=== PATIENT | female | born 1995 | race Caucasian/White ===

== ENCOUNTER → 2016-08-26 | Outpatient (CLI) | payer BC, OTHER ==
--- NOTE | 2016-08-26 21:58 | REP ---
Clinical: Back pain . Technique: AP, lateral, bilateral oblique, and coned-down views. Findings: Alignment and lordosis is maintained. The vertebral bodies including transverse process and spinous processes are intact and normal. There is no evidence for acute fracture / compression injury or subluxation. No evidence for spondylolysis or spondylolisthesis. No significant degenerative change is noted. Impression: Normal lumbosacral spine radiograph series. Signed by Cole Oneal MD 08/26/2016 09:49 P
--- NOTE | 2016-08-26 22:05 | REP ---
Clinical: thoracic pain. Technique: AP, lateral, and swimmers views. Findings: Kyphosis is maintained. Very subtle dextroconvex scoliosis noted centered at T6-7. Vertebral bodies intact. No acute fracture / compression injury or subluxation. No degenerative changes. Paravertebral soft tissues are normal. Impression: Trace dextroconvex scoliosis. Otherwise normal examination. Signed by Cole Oneal MD 08/26/2016 09:57 P
== END ==
LOC: M CLY 09:30
PROVIDERS: ATTEND Physician Assistant
DX: M41.9 Scoliosis, unspecified (principal)

== ENCOUNTER → 2017-03-24 | Outpatient (REF) | payer OTHER ==
[2017-03-25 20:11] LABS: CHLAMYDIA DNA AMPLIFICATION NEGATIVE (NEGATIVE); GC DNA AMPLIFICATION NEGATIVE (NEGATIVE)
== END ==
LOC: M SFHCCAPE 15:10
DX: Z01.419 Encounter for gynecological examination (general) (routine) without abnormal findings (principal); B37.3 Candidiasis of vulva and vagina
CPT/HCPCS: 87077; 87591

== ENCOUNTER → 2017-11-18 | Outpatient (REF) | payer OTHER | LOC: M LAB REF 16:58 | DX: R30.0 Dysuria (principal) ==

== ENCOUNTER 2018-05-27 11:21 | Day surgery (SDC) | payer BC, OTHER ==
[~2018-05-27] VITALS: Ht 167.6 cm; Wt 69.1 kg
[~2018-05-27 11:21] MED LIST: LR 1,000 ML IV SCH
[2018-05-27] MEDS ORDERED: LOW-1TAB2 PO (11:40)
[2018-05-27 11:48] LABS: HEMATOCRIT 46.3 % (36.0-47.0); HEMOGLOBIN 15.5 g/dl (12.0-15.5); MEAN CORPUSCULAR HEMOGLOBIN 30.9 pg (27.0-33.0); MEAN CORPUSCULAR HGB CONC 33.5 g/dl (32.0-36.5); MEAN CORPUSCULAR VOLUME 92.4 fl (80.0-96.0); PLATELET COUNT, AUTOMATED 232 10^3/uL (150-450); RED BLOOD COUNT 5.01 10^6/uL (4.00-5.40)
[2018-05-27 12:22] LABS: HCG, SERUM QUALITATIVE NEGATIVE (NEGATIVE)
[2018-05-27] MEDS ORDERED: PROPOFOL 200 MG/20 ML VIAL As Ordered ONE ×2 (12:37→16:53)
[2018-05-27] MEDS ORDERED: LIDOCAINE 2% INJ 100 MG/5 ML SDV (FOR ANES.) As Ordered ONE (12:37)
[2018-05-27] MEDS ORDERED: MIDAZOLAM INJ 2 MG/2 ML VIAL (J2250) As Ordered ONE (12:38)
[2018-05-27] MEDS ORDERED: dexameTHASONE 4 MG/ML 1ML VIAL (J1100) As Ordered ONE (12:38)
[2018-05-27] MEDS ORDERED: fentaNYL 100 MCG/2 ML INJECTION (J3010) As Ordered ONE (12:38)
[2018-05-27] MEDS ORDERED: ONDANSETRON 4MG/2ML VIAL (J2405) As Ordered ONE (12:38)
[2018-05-27] MEDS ORDERED: BUPIVACAINE HCL 0.25% 30 ML VIAL As Ordered ONE (13:43)
[2018-05-27] MEDS ORDERED: ESTROGENS VAGINAL CREAM 30GM As Ordered ONE (13:43)
[2018-05-27] MEDS ORDERED: SILVER NITRATE APPLICATOR As Ordered ONE (13:43)
[2018-05-27] MEDS ORDERED: PERC5TAB12 PO (17:35)
[2018-05-27] MEDS ORDERED: DIBU10OI TOP (17:41)
[2018-05-27] MEDS ORDERED: IBUP80TA PO (17:41)
[2018-05-27] MEDS ORDERED: KETOROLAC 30 MG/ML VIAL (J1885) As Ordered ONE (18:18)
[2018-05-27] MEDS ORDERED: KETOROLAC 30 MG/ML VIAL (J1885) IV ONE (18:45)
[2018-05-27] MEDS ORDERED: LIDOCAINE 2% JELLY 30 ML As Ordered ONE (19:01)
[2018-05-27 19:40] VITALS: BP 131/90
--- NOTE | 2018-05-28 07:35 | RO ---
DATE OF PROCEDURE: 05/27/2018 PREOPERATIVE DIAGNOSIS: Right Bartholin's duct cyst. POSTOPERATIVE DIAGNOSIS: Right Bartholin's duct cyst. PROCEDURE PERFORMED: Right Bartholin's duct cyst marsupialization. SURGEON: DO SUMAN ArroyoOG FINISHING INSPECTOR: None. ANESTHESIA: Local, monitored anesthesia care (MAC). SPECIMENS SENT TO PATHOLOGY: Culture swab anaerobic and aerobic of the cystic fluid. ESTIMATED BLOOD LOSS: 5 mL. FLUIDS REPLACED: 1100 mL of lactated Ringer's. DRAINS: None. URINE OUTPUT: Not recorded. COMPLICATIONS: None. PREOPERATIVE ANTIBIOTICS: Ancef 2 grams IV times one. INTRAOPERATIVE FINDINGS: Right Bartholin's duct cyst approximately 3 cm in greatest dimension. The cystic fluid was yellow-brown in color, non-malodorous. INDICATION: Patient is a 23-year-old with a newly diagnosed right sided Bartholin's duct cyst. She has elected to proceed with marsupialization under anesthesia after reviewing risks, benefits, alternatives and indications. PROCEDURE: The patient was counseled and consented on the risks, benefits, indications, alternatives of the procedure. Informed consent was obtained. She was taken to the operating room with an IV running and placed on operating table in the dorsal supine position. We placed her in the high lithotomy position. She was prepared and draped in normal sterile fashion. A time-out was performed per protocol. Local anesthetic approximately 8 mL of 1% lidocaine was injected over the dome of the Bartholin's duct cyst. The Bartholin's duct cyst was pushed to the surface. At the interface of the vagina and vulva a 2 cm elliptical incision was made with the 15 blade. After the elliptical incision was made and the overlying skin was excised, the cystic wall was incised with a 15 blade and expression of copious amounts of the yellow-brown fluid was noted, the fluid was cultured during the decompression of the cyst. The cystic wall was tacked to the normal vaginal and vulvar epithelium and an circumferential fashion, thus creating a marsupialized pouch. The cystic space was broken up with a hemostat to ensure that any loculations were broken up and fluid could be drained. After marsupialization the patency was still approximately 1.5 to 2 cm. Minimal drainage and bleeding was noted at the conclusion of the procedure. Given excellent hemostasis and successful marsupialization the decision was made to conclude the procedure. Additional 1% lidocaine was injected into the surgical site. Sponge, lap, needle, and instrument counts were correct. The patient tolerated the entire procedure well. She was transferred the post-anesthesia care unit (PACU) in good stable condition. EDYTA
== END 2018-05-27 19:40 | disposition home or self-care (01) ==
LOC: M SDC 11:21
PROVIDERS: ATTEND Obstetrics & Gynecology
DX: N75.0 Cyst of Bartholin's gland (principal)
CPT/HCPCS: 36415; 56440; 84703; 85027; 86850; 87070; 87075; 87205; J0690; J1100; J1885; J2250; J2405; J3010

== ENCOUNTER → 2018-10-11 | Outpatient (REF) | payer OTHER ==
[~2018-10-11] MED LIST changes: +DIBU10OI TOP; +IBUP80TA PO; +LOW-1TAB2 PO; -LR 1,000 ML IV SCH; +PERC5TAB12 PO
== END ==
LOC: M LAB REF 08:24
PROVIDERS: ATTEND Physician Assistant
DX: J02.9 Acute pharyngitis, unspecified (principal)

== ENCOUNTER → 2020-04-26 | Outpatient (REF) | payer OTHER | LOC: M SFHCCLAY 11:08 | PROVIDERS: ATTEND Physician Assistant | DX: Z01.419 Encounter for gynecological examination (general) (routine) without abnormal findings (principal) ==